=== PATIENT | male | born 1995 | race Caucasian/White ===

== ENCOUNTER 2018-12-07 17:00 | Emergency (ER) | payer SELFPAY ==
[~2018-12-07] VITALS: Ht 180.3 cm; Wt 90.7 kg
[2018-12-07] MEDS ORDERED: VALIUM10 MG ORAL (17:18)
[2018-12-07] MEDS ORDERED: QUETIAPINE FUM100 MG ORAL (17:18)
[2018-12-07] MEDS ORDERED: Subutex ORAL (17:18)
--- NOTE | 2018-12-07 17:35 | NUR ---
ED Nurse Note: Pt came in from home due to swelling, redness over LUE after IV drug use x 1 week; patient also c/o multiple, small red bumps. Pain 8/10 isabel. Will cont to monitor.
[2018-12-07] MEDS ORDERED: ROBAXIN500 MG PO (17:37)
[2018-12-07] MEDS ORDERED: Clindamycin ORAL (17:38)
--- NOTE | 2018-12-07 17:50 | Emergency Room Report ---
History of Present Illness General Chief Complaint: Skin Rash/Abscess Source: Patient Present Illness HPI 23-year-old male presents to the emergency department complaining of 10 out of 10 in severity to the left forearm as well as the right axilla progressive over the course of 2 days. Patient reports he is a IV drug user and pain started at the site of recent injection. Patient reports stated last use was yesterday. 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 Patient reports that he has intermittent episodes of CP and that they have been occuring for years. He denies palpitations. He also is c/o multiple bug bites on the bilateral arms, torso, back, and lower abdomen. Pt. reports he has been picking at them. Pt. denies itchiness. Pt. denies swollen tender lymph nodes. Denies new medications or body washes or creams. Denies swelling of the lips, tongue , throat or airway. Denies wheezing , or shortness of breath. Denies recent travel, recent illness or ill contacts. denies blisters, oral lesions, or sloughing of the skin. Pt. UTD with tetanus vaccination and denies trauma or falls. Allergies: Coded Allergies: BUPRENORPHINE (Verified Allergy, Unknown, 12/07/18) NALOXONE (Verified Allergy, Unknown, 12/07/18) Patient History Past Medical History: see triage record Past Surgical History: none Pertinent Family History: none Social History: Reports: drug use - IV meth use- last use was yesterday Immunizations: UTD Reviewed Nursing Documentation: PMH: Agreed; PSxH: Agreed Nursing Documentation-PMH Past Medical History: No History, Except For History Of Psychiatric Problem: Yes - Bipolar Review of Systems All Other Systems: negative except mentioned in HPI Physical Exam Vital Signs Date Time Temp Pulse Resp B/P (MAP) Pulse Ox O2 Delivery O2 Flow Rate FiO2 12/07/18 17:13 98.1 102 18 141/82 100 Room Air Medical Decision Making PA Attestation Dr. Stone is my supervising Physician whom patient management has been discussed with. Diagnostic Impression: Primary Impression: Cellulitis Qualified Codes: L03.90 - Cellulitis, unspecified Additional Impressions: Abscess Rash and other nonspecific skin eruption ER Course 23-year-old male presents to the emergency department complaining of 10 out of 10 in severity to the left forearm as well as the right axilla progressive over the course of 2 days. Patient reports he is a IV drug user and pain started at the site of recent injection. Patient reports stated last use was yesterday. 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 Patient reports that he has intermittent episodes of CP and that they have been occuring for years. He denies palpitations. He also is c/o multiple bug bites on the bilateral arms, torso, back, and lower abdomen. Pt. reports he has been picking at them. Pt. denies itchiness. Pt. denies swollen tender lymph nodes. Denies new medications or body washes or creams. Denies swelling of the lips, tongue , throat or airway. Denies wheezing , or shortness of breath. Denies recent travel, recent illness or ill contacts. denies blisters, oral lesions, or sloughing of the skin. Pt. UTD with tetanus vaccination and denies trauma or falls. Ddx considered but are not limited to cellulitis, abscess, cystic acne, necrotizing fasciitis, insect bite. Vital signs: are WNL, pt. is afebrile H&PE are most consistent with Cellulitis of the left forearm and abscess of the right axilla suspicious for hydradenitis ORDERS: none required at this time, the diagnosis is clinical ED INTERVENTIONS: -I & D. - PO Abx : Keflex and Bactrim. Pt. states that Keflex and bactrim have historically not worked for him and is requesting alternative medication. DISCHARGE: At this time pt. is stable for d/c to home. Will provide printed patient care instructions, and any necessary prescriptions. Care plan and follow up instructions have been discussed with the patient prior to discharge. Last Vital Signs Date Time Temp Pulse Resp B/P (MAP) Pulse Ox O2 Delivery O2 Flow Rate FiO2 12/07/18 17:13 98.1 102 18 141/82 100 Room Air Disposition: HOME, SELF-CARE Condition: Stable Scripts Mupirocin* (MUPIROCIN*) 22 Gm Oint...g. 1 APPLIC TOPIC THREE TIMES A DAY, #22 GM Prov: Marjorie Fagan 12/07/18 Acetaminophen* (TYLENOL EXTRA STRENGTH*) 500 Mg Tablet 500 MG ORAL Q6H, #20 TAB 0 Refills Prov: Marjorie Fagan 12/07/18 Doxycycline Hyclate* (VIBRAMYCIN*) 100 Mg Capsule 100 MG ORAL EVERY 12 HOURS for 7 Days, #14 CAP 0 Refills Prov: Marjorie Fagan 12/07/18 Patient Instructions: Abscess Additional Instructions: Take medications as directed. Follow up with a Primary Care Provider in 3-5 days, even if your symptoms have resolved. --Please review list of primary care clinics, if you do not already have a primary care provider Return sooner to ED if new symptoms occur, or current symptoms become worse. - Please note that this Emergency Department Report was dictated using [employer] technology software, occasionally this can lead to erroneous entry secondary to interpretation by the dictation equipment. Marjorie Fagan Dec 07, 2018 17:50
[2018-12-07] MEDS ORDERED: Bactrim-DS 1 tab ORAL ONE (18:00)
[2018-12-07] MEDS ORDERED: Cephalexin 500mg cap ORAL ONE (18:00)
[2018-12-07] MEDS ORDERED: Bacitracin Oint UD TOPIC ONE ×2 (18:00→19:00)
[2018-12-07 18:49] VITALS: BP 129/78
[2018-12-07] MEDS ORDERED: TYLENOL EXTRA500 MG ORAL (18:59)
[2018-12-07] MEDS ORDERED: VIBRAMYCIN100 MG ORAL (18:59)
[2018-12-07] MEDS ORDERED: MUPIROCIN22 GM TOPIC (19:02)
[2018-12-07 19:10] VITALS: BP 126/76
--- NOTE | 2018-12-07 19:10 | NUR ---
ER Nurse Note: Pt seen, treated, medically cleared for discharge by ER PA. Discharge instructions and prescriptions given with repeat verbalziation by pt. Instructed pt to follow up with primary care physcian within one week. Pt a&ox4, VSS, no signs of distress. ID band removed. Pt left with all belongings, stable gait, via own transportation.
== END 2018-12-07 19:10 | disposition home or self-care (01) ==
LOC: EMR 19:05
DX: L03.114 Cellulitis of left upper limb (principal); L02.411 Cutaneous abscess of right axilla; F19.90 Other psychoactive substance use, unspecified, uncomplicated; F31.9 Bipolar disorder, unspecified; F17.200 Nicotine dependence, unspecified, uncomplicated; R07.9 Chest pain, unspecified; Z86.14 Personal history of Methicillin resistant Staphylococcus aureus infection; Z88.5 Allergy status to narcotic agent
CPT/HCPCS: 99282